=== PATIENT | female | born 1990 | race Caucasian/White ===

== ENCOUNTER → 2016-07-12 | Outpatient (CLI) | payer OTHER ==
[~2016-07-12] MED LIST: MTR600X PO; OXYC-57 PO
[2016-07-12 18:38] LABS: URINE APPEARANCE CLOUDY (CLEAR); URINE BILIRUBIN NEG (NEG); URINE COLOR YELLOW; URINE EPITHELIAL CELL AUTO >30 /lpf (0-5); URINE NITRITE NEG (NEG); URINE SPECIFIC GRAVITY 1.028 (1.000-1.030); UROBILINOGEN NEG (NEG); ZZUR CULT IF INDIC CLEAN CATCH YES
[2016-07-12 18:45] LABS: MANUAL MICROSCOPIC REQUIRED? NO; REVIEW REQ? NO
== END | disposition home or self-care (01) ==
LOC: C.LABSPEC 17:34
PROVIDERS: ATTEND Obstetrics & Gynecology
DX: N94.9 Unspecified condition associated with female genital organs and menstrual cycle (principal)

== ENCOUNTER 2016-07-30 09:53 | Day surgery (SDC) | payer OTHER ==
[2016-07-12 16:02] LABS: BASO % 0.5 %; BASO ABS # 0.04 K/uL (0-0.2); COMPLETE YES; EOS % 0.6 %; HEMATOCRIT 42.8 % (37-47); IG% 0.1 %; LYMPH % 18.5 %; LYMPH ABS # 1.52 K/uL (1.2-3.4); MEAN CELL VOLUME 84.3 fL (80-100); MEAN CORPUSCULAR HEMOGLOBIN 28.9 pg (25-34); MEAN CORPUSCULAR HGB CONC 34.3 g/dl (32-36); MEAN PLATELET VOLUME 10.7 fL (7.4-10.4); NEUT % 74.3 %; PLATELET COUNT 271 K/uL (130-400); RED BLOOD COUNT 5.08 M/uL (4.2-5.4); WHITE BLOOD COUNT 8.21 K/uL (4.8-10.8)
[2016-07-12 16:31] LABS: BLOOD UREA NITROGEN 16 mg/dl (7-18); BUN/CREATININE RATIO 16.8 (10-20); CALCIUM 9.6 mg/dl (8.5-10.1); CARBON DIOXIDE 27 mmol/L (21-32); CHLORIDE 105 mmol/L (98-107); CREATININE 0.94 mg/dl (0.60-1.20); GLUCOSE 88 mg/dl (70-99); POTASSIUM 3.7 mmol/L (3.5-5.1); SODIUM 140 mmol/L (136-145)
[2016-07-14 15:36] VITALS: BMI 24.0
[~2016-07-30] VITALS: Ht 162.6 cm; Wt 65.0 kg
[~2016-07-30 09:53] MED LIST changes: +LACTATED RINGER'S 1000ML 1,000 ML IV SCH; -MTR600X PO; -OXYC-57 PO
[2016-07-30 10:26] VITALS: BP 125/85; PULSE 71; TEMP 36.7; O2SAT 98; Ht 162.6 cm; Wt 65.0 kg
--- NOTE | 2016-07-30 11:30 | History & Physical Bridge Note ---
H&P Re-Evaluation Bridge Note: I have examined the patient, reviewed the History & Physical and in the interval since the performance of the History & Physical I have noted the following changes of clinical significance: No changes noted
[2016-07-30] MEDS ORDERED: MIDAZOLAM HCL 1 MG/ML 2ML VIAL ONE (11:39)
[2016-07-30] MEDS ORDERED: FENTANYL CITRATE INJ 50 MCG/1 ML 2 ML VIAL ONE ×2 (11:41→12:30)
[2016-07-30] MEDS ORDERED: ONDANSETRON INJ 2 MG/ML 2 ML VIAL ONE ×2 (11:42)
[2016-07-30] MEDS ORDERED: LIDOCAINE HCL 2% 2 ML VIAL (20MG/ML) ONE (11:42)
[2016-07-30] MEDS ORDERED: PROPOFOL IV EMULSION 10 MG/ML 20 ML VIAL IV ONE (11:42)
[2016-07-30] MEDS ORDERED: ROCURONIUM BROMIDE 10 MG/ML 5 ML VIAL ONE (11:42)
[2016-07-30] MEDS ORDERED: GLYCOPYRROLATE INJ 0.2 MG/ML VIAL ONE (11:42)
[2016-07-30] MEDS ORDERED: NEOSTIGMINE METHYLSULFATE 5 MG/5 ML SYR ONE (11:42)
[2016-07-30] MEDS ORDERED: DEXAMETHASONE SOD INJ 4 MG/ML VIAL ONE (11:42)
[2016-07-30] MEDS ORDERED: HYDROmorphone INJ 2 MG/ML SYR/VIAL IV PRN (12:00)
[2016-07-30] MEDS ORDERED: ATROPINE SULFATE 0.1 MG/ML 5ML SYR IV PRN (12:00)
[2016-07-30] MEDS ORDERED: FLUMAZENIL 0.1 MG/1 ML 10 ML VIAL IV PRN (12:00)
[2016-07-30] MEDS ORDERED: PHENYLEPHRINE 100MCG/ML 5ML SYR IV PRN (12:00)
[2016-07-30] MEDS ORDERED: EpHEDrine SULFATE INJ 50 MG/ML AMP IV PRN (12:00)
[2016-07-30] MEDS ORDERED: NALOXONE HCL 0.4 MG/1 ML VIAL/CARP IV PRN (12:00)
[2016-07-30] MEDS ORDERED: LABETALOL HCL IV 5 MG/ML 20ML IV PRN (12:00)
[2016-07-30] MEDS ORDERED: ONDANSETRON INJ 2 MG/ML 2 ML VIAL IV PRN ×2 (12:00→13:15)
[2016-07-30] MEDS ORDERED: MEPERIDINE HCL 25 MG/ML CARP IV PRN (12:00)
[2016-07-30] MEDS ORDERED: METHYLENE BLUE 1% 10 ML VIAL TOP ONE (13:02)
[2016-07-30] MEDS ORDERED: BUPIVACAINE 0.5 % 5 MG/1 ML MPF 30ML VIAL INJ ONE (13:02)
[2016-07-30] MEDS ORDERED: SODIUM CHLORIDE 0.9% 1000ML 1,000 ML IV SCH (13:10)
[2016-07-30] MEDS ORDERED: KETOROLAC TROMETHAMINE 30 MG/ML VIAL ONE (13:11)
--- NOTE | 2016-07-30 13:12 | [facility] Post Operative Brief Note ---
Immediate Operative Summary Operative Date Jul 30, 2016. Pre-Operative Diagnosis pelvic pain Post-Operative Diagnosis endometriosis Procedure(s) Performed Laparoscopic excision of endometriosis and chromotubation Surgeon Jamal Grease Monkey Surgeon(s) Clement Estimated Blood Loss 10ml Findings Endo in right uterosacral ligament Specimens Resected endo x 2 Drains None Anesthesia General Complication(s) None Disposition Recovery Room / PACU
--- NOTE | 2016-07-30 13:13 | Discharge Instructions ---
Discharge Instructions Admission Reason for Admission: Dysmenorrhea, Pelvic Pain Discharge Discharge Diagnosis / Problem: endometriosis Discharge Goals Goal(s): Routine recovery after surgery Activity Recommendations Activity Limitations: per Instructions/Follow-up section . Instructions / Follow-Up Instructions / Follow-Up POST OPERATIVE: BOWEL FUNCTION/MEDICATIONS: 1. Constipation pain and discomfort are the most common complaints 5-7 days after surgery. Points 2-6 address the things that can help. 2. Chewing gum can help stimulate the gut and help improve digestion and motility. 3. Milk of Magnesia 1-2 times per day until return of bowel function. 4. Colace is a stool softener that helps. Taking this 2-3 times per day until bowel function returns to normal is highly recommended. 5. Dulcolax is a laxative that may be used if several days have passed without a bowel movement. Alternatively Miralax may be used daily instead. 6. Drink plenty of fluids as this will also reduce constipation. 7. Narcotic pain medications will be prescribed by your physician. They are safe to use and we encourage you to use them. If you are not allergic, ibuprofen will also be prescribed. Many patients will be able to transition off of the narcotic medications to ibuprofen by postoperative day 3. ACTIVITY RECOMMENDATIONS: 1. Get plenty of rest and listen to your body. If you are tired, take a nap. 2. You may shower, but do not take a tub bath until you see your doctor at the 2 week post operative visit. 3. Absolutely NO intercourse and nothing in the vagina until you are examined by your doctor at the 6 week visit. At that visit it will be determined when such activities can be resumed. This can range from 6-12 weeks after your surgery depending on healing time. 4. The main physical activity in the first week should be walking. By the second week you can slowly increase activity. There are no limits on walking up and down stairs. 5. Do not lift more than 5-10 lbs for 4 weeks. Remember the "one-handed rule", i.e. if you can lift something with only one hand it's likely okay. 6. Minimize security monitor like vacuuming and exercising for 4 weeks. "Overdoing it" can lead to incisions not healing, pain and vaginal bleeding , so again, listen to your body. 7. Driving can be resumed when you feel able. Do not drive within 24 hours of taking a narcotic medication. EXPECTATIONS: 1. Vaginal spotting, bleeding and discharge are common after surgery. There may even be an odor to the discharge which is often related to sutures used in the vagina. If you experience heavy vaginal bleeding, call the office number day or night [phone]. 2. Bladder discomfort is common after surgery from the catheter. This usually resolves in 1-2 weeks. 3. By the end of the 3rd or 4th week you should be feeling much better. It may take up to 6 weeks for your energy levels to return to normal. 4. Narcotic medications have side effects such as: dizziness, headache, nausea and/or vomiting. If you suspect your pain medication is causing problems, call our office and we may be able to prescribe an alternate medication. 5. The skin incisions are often covered with a liquid bandage. This will gradually peel off over time. CALL THE OFFICE IF YOU HAVE ANY OF THE FOLLOWIN. Temperature of 101 degrees or higher. 2. Severe abdominal or pelvic pain not relieved by pain medication. 3. Persistent nausea or vomiting. 4. Increased pain with urination or difficulty urinating. 5. Bright red bleeding that soaks more than 1 pad per hour. CONTACT PHONE NUMBERS: Main Office: [phone] Surgical Nurse: [phone] extension [phone] Avoid all tobacco products. If you need help to stop smoking, call [place]'s FREE QUITLINE at . This is a free call. Current Hospital Diet Patient's current hospital diet: Discharge Diet Recommended Diet: Regular Diet Procedures Procedures Performed: Laparoscopic excision of endometriosis and chromotubation Pending Studies Studies pending at discharge: no Medical Emergencies . Who to Call and When: Medical Emergencies: If at any time you feel your situation is an emergency, please call 911 immediately. . Non-Emergent Contact Non-Emergency issues call your: Primary Care Provider . . "Provider Documentation" section prepared by Everton Berry. VTE Core Measure Inpt VTE Proph given/why not?: Treatment not indicated
[2016-07-30] MEDS ORDERED: MTR600X PO (13:14)
[2016-07-30] MEDS ORDERED: OXYC-57 PO (13:14)
[2016-07-30] MEDS ORDERED: OXYCODONE/ACETAMINOPHEN 5-325 TAB PO PRN ×2 (13:15)
[2016-07-30] MEDS ORDERED: PROMETHAZINE HCL INJ 25 MG in SODIUM CHLORIDE 0.9% 50ML 50 ML IV PRN (13:15)
[2016-07-30] MEDS ORDERED: IBUPROFEN 600 MG TAB PO PRN (13:15)
[2016-07-30] MEDS ORDERED: KETOROLAC TROMETHAMINE 30 MG/ML VIAL IV. PRN (13:15)
[2016-07-30] MEDS: FENTANYL CITRATE INJ 50 MCG/1 ML 2 ML VIAL IV PRN ×2 (13:27→13:32)
--- NOTE | 2016-07-30 13:49 | OPERATIVE REPORT ---
DATE OF OPERATION: 07/30/2016 PREOPERATIVE DIAGNOSIS: Pelvic pain. POSTOPERATIVE DIAGNOSIS: Pelvic pain and endometriosis. PROCEDURE: Da Rupal robotically-assisted laparoscopic excision of endometriosis and chromotubation of tubes. SURGEON: Dr. Berry. SURVEYING CREW STAKE RUNNER: Clement. ESTIMATED BLOOD LOSS: 10 mL. FINDINGS: Endometriosis in the right uterosacral ligament region. SPECIMENS: Resected endometriosis x2. DRAINS: None. ANESTHETIC: General. COMPLICATIONS: None. DISPOSITION: Recovery room. DESCRIPTION OF PROCEDURE: Bre was given a general anesthetic, prepped and draped in dorsolithotomy position in [facility]. Bladder drained with a Adams catheter. Cervix grasped with an Allis clamp and then a uterine acorn manipulator attached. Gloves changed and then a subumbilical incision made with scalpel. Using open Sb technique, we dissected down into the peritoneal cavity, placing then a blunt-tipped Sb trocar, balloon inflated and CO2 gas used to insufflate the abdomen. FINDINGS: Deep Trendelenburg position was obtained. Two robotic ports placed, 1 in the left, 1 in the right and we visualized using robotic assistance. In right uterosacral region, there was a small nodule, highly consistent with endometriosis, this was just lateral to the uterosacral although well medial of the ureter which course could be seen. There also was a lesion in the medial to the right uterosacral, which was suspicious for endometriosis as well. The nodule appeared dark bluish and pictures were taken for documentation. Hooking the robot up, we then applied monopolar lakeisha to arm #1 bipolar [place] arm 2. Using the uterine manipulator, I was able to identify the lesions, we were carefully able to resect the area and find a line between the ureter and the area to resect. We were nowhere near the ureter in fact very little electrosurgical energy was used to dissect this. This first specimen was placed on top of the uterus for safekeeping the second specimen which was medial to the right uterosacral was also resected by enlarged with an nonelectrosurgery using sharply. Careful inspection of the pelvic sidewalls, the left uterosacral, ureters, anterior bladder region, uterus itself, appendix and the entire pelvis were all negative for endometriosis. At the end of the procedure, methylene blue diluted with saline was placed through the cervix and was able to be demonstrated the bilateral patency of both fallopian tubes. At the end of the procedure, removed the instruments from the vagina, Adams catheter was removed. Robot had been undocked and instruments had been removed. Ports removed, gas allowed to escape. Incisions injected with 0.5% Marcaine. Fascia closed with 0 Vicryl in the umbilical incision and then 4-0 subcuticular Monocryl. It should be noted that 2 specimens had been removed earlier during the procedure through one of the robotic arms. I attest to the content of the Intraoperative Record and any orders documented therein. Any exceptio ns are noted below.
--- NOTE | 2016-07-30 13:53 | Anesthesia Progress Nt - [facility] ---
Anesthesia Post Op Note Date & Time Jul 30, 2016 at 13:53 Vital Signs Pain Intensity: 2 Vital Signs Past 12 Hours Date Time Temp Pulse Resp B/P Pulse Ox O2 Delivery O2 Flow Rate FiO2 07/30/16 13:40 Room Air 07/30/16 13:20 36 74 16 145/92 98 Mask 10 07/30/16 10:26 36.7 71 18 125/85 98 Room Air Notes Mental Status: alert / awake / arousable, participated in evaluation Pt Amnestic to Procedure: Yes Nausea / Vomiting: adequately controlled Pain: adequately controlled Airway Patency, RR, SpO2: stable & adequate BP & HR: stable & adequate Hydration State: stable & adequate Anesthetic Complications: no major complications apparent
[2016-07-30 14:05] VITALS: BP 128/72; PULSE 74; TEMP 36.6; O2SAT 94
[2016-07-30 14:35] VITALS: BP 121/75; PULSE 65; O2SAT 95
[2016-07-30 15:05] VITALS: BP 116/73; PULSE 65; TEMP 36.1; O2SAT 94
[2016-07-30 15:35] VITALS: BP 115/72; PULSE 70; TEMP 36.2; O2SAT 95
[2016-07-30 16:05] VITALS: BP_SYST 119; PULSE 75; TEMP 36.3; O2SAT 96
== END 2016-07-30 16:15 | disposition home or self-care (01) ==
LOC: C.ACU 09:53
PROVIDERS: ATTEND Obstetrics & Gynecology
DX: N80.0 Endometriosis of uterus (principal); N94.9 Unspecified condition associated with female genital organs and menstrual cycle; F32.9 Major depressive disorder, single episode, unspecified; N94.6 Dysmenorrhea, unspecified; Z87.891 Personal history of nicotine dependence; Z82.49 Family history of ischemic heart disease and other diseases of the circulatory system; Z83.3 Family history of diabetes mellitus

== ENCOUNTER → 2017-02-03 | Outpatient (CLI) | payer OTHER ==
[~2017-02-03] MED LIST changes: -LACTATED RINGER'S 1000ML 1,000 ML IV SCH; +MTR600X PO; +OXYC-57 PO
[2017-02-06 14:27] LABS: CHLAMYDIA TRACH RNA*** DETECTED (NOT DETECTED); GC (NEIS GONORRHOEAE)RNA** NOT DETECTED (NOT DETECTED)
== END | disposition home or self-care (01) ==
LOC: C.LAB 12:01
PROVIDERS: ATTEND Physician Assistant
DX: Z20.2 Contact with and (suspected) exposure to infections with a predominantly sexual mode of transmission (principal)

== ENCOUNTER → 2017-05-31 | Outpatient (CLI) | payer OTHER | END | disposition home or self-care (01) | LOC: C.PAPS 10:03 | PROVIDERS: ATTEND Obstetrics & Gynecology | DX: Z34.81 Encounter for supervision of other normal pregnancy, first trimester (principal) ==

== ENCOUNTER → 2017-05-31 | Outpatient (CLI) | payer OTHER ==
[2017-05-31 15:35] LABS: BASO % 0.3 %; BASO ABS # 0.03 K/uL (0-0.2); COMPLETE YES; EOS % 0.7 %; HEMATOCRIT 38.9 % (37-47); IG% 0.3 %; LYMPH % 19.5 %; LYMPH ABS # 1.84 K/uL (1.2-3.4); MEAN CELL VOLUME 86.8 fL (80-100); MEAN CORPUSCULAR HEMOGLOBIN 29.2 pg (25-34); MEAN CORPUSCULAR HGB CONC 33.7 g/dl (32-36); MEAN PLATELET VOLUME 10.6 fL (7.4-10.4); MONO % 6.2 %; PLATELET COUNT 213 K/uL (130-400); RED BLOOD COUNT 4.48 M/uL (4.2-5.4); WHITE BLOOD COUNT 9.43 K/uL (4.8-10.8)
[2017-05-31 16:46] LABS: URINE APPEARANCE CLEAR (CLEAR); URINE BILIRUBIN NEG (NEG); URINE COLOR YELLOW; URINE EPITHELIAL CELL AUTO >30 /lpf (0-5); URINE NITRITE NEG (NEG); URINE SPECIFIC GRAVITY 1.017 (1.000-1.030); UROBILINOGEN NEG (NEG)
[2017-05-31 16:47] LABS: MANUAL MICROSCOPIC REQUIRED? NO; REVIEW REQ? NO
[2017-06-03 01:52] LABS: CHLAMYDIA TRACH RNA*** NOT DETECTED (NOT DETECTED); GC (NEIS GONORRHOEAE)RNA** NOT DETECTED (NOT DETECTED)
== END | disposition home or self-care (01) ==
LOC: C.LAB1850 14:49
PROVIDERS: ATTEND Obstetrics & Gynecology
DX: Z34.81 Encounter for supervision of other normal pregnancy, first trimester (principal); Z3A.00 Weeks of gestation of pregnancy not specified

== ENCOUNTER → 2017-07-21 | Outpatient (CLI) | payer OTHER | END | disposition home or self-care (01) | LOC: C.LAB1850 09:11 | PROVIDERS: ATTEND Obstetrics & Gynecology | DX: Z34.82 Encounter for supervision of other normal pregnancy, second trimester (principal) ==

== ENCOUNTER → 2017-10-13 | Outpatient (CLI) | payer OTHER ==
[2017-10-13 12:30] LABS: HEMATOCRIT 35.5 % (37-47); HEMOGLOBIN 11.7 g/dL (12.0-16.0)
== END | disposition home or self-care (01) ==
LOC: C.LAB1850 09:33
PROVIDERS: ATTEND Obstetrics & Gynecology
DX: Z34.83 Encounter for supervision of other normal pregnancy, third trimester (principal)

== ENCOUNTER → 2018-02-23 | Outpatient (CLI) | payer OTHER | END | disposition home or self-care (01) | LOC: C.PAPS 13:54 | PROVIDERS: ATTEND Obstetrics & Gynecology | DX: Z39.2 Encounter for routine postpartum follow-up (principal) ==

== ENCOUNTER 2019-03-18 04:47 | Inpatient (IN) ==
[2019-03-18] MEDS ORDERED: OXYTOCIN 30 UNITS/500 ML BAG IV PRN (06:29)
[2019-03-18] MEDS ORDERED: LACTATED RINGER'S 1,000 ML IV PRN (06:29)
[2019-03-18 06:57] LABS: Hematocrit (blood only) 35.2 % (37-47); Hemoglobin 11.1 g/dL (12.0-16.0); Mean Corpuscular Volume 80.7 fL (80-100); Mean Platelet Volume 12.5 fL (7.4-10.4); Platelet Count 187 K/uL (130-400); RDW Coefficient of Variation 15.2 % (11.5-14.5); RDW Standard Deviation 44.3 fL (36.4-46.3); Red Blood Count 4.36 M/uL (4.2-5.4); White Blood Count 11.81 K/uL (4.8-10.8)
[2019-03-18 07:01] LABS: Mean Corpuscular Hgb Conc 31.5 g/dL (32-36)
[2019-03-18] MEDS ORDERED: IBUPROFEN 600 MG TAB PO ONE (07:44)
[2019-03-18] MEDS ORDERED: BENZOCAINE 20% AER SPR 82.5 GM CAN EXT ONE (07:44)
--- NOTE | 2019-03-18 07:44 | Delivery Summary ---
Vaginal Delivery Summary Date of Service March 18, 2019 Vaginal Delivery Summary DIAGNOSES: 1. Mckay intrauterine at 39w5d gestation. 2. Spontaneous onset of labor. 3. Group B Streptococcus Neg. PROCEDURE: Spontaneous vaginal delivery, 1st degree laceration for which patient declined repair. SURGEON: Ana Lilia Spangler MD. RESEARCH PROGRAM MANAGER: None. ESTIMATED BLOOD LOSS: 300 mL. COMPLICATIONS: None. PLACENTA: Spontaneous and intact with a 3-vessel cord. DISPOSITION: Stable to labor and delivery. DESCRIPTION: The patient pushed well and brought the head to in OA position. The infant's head was allowed to deliver with contraction force and no further active pushing, with the perineum protected during this time. The shoulders delivered easily with a maternal pushing effort. There was a loose nuchal cord. The left shoulder was anterior. The shoulders and body delivered without any difficulty, and the infant was placed on the maternal abdomen. It was vigorous and moving all extremities, and making respiratory efforts. The cord was doubly clamped by the MD and then cut by the FOB. The placenta delivered spontaneously and was noted to be intact and with a 3VC. The cervix, vagina and perineum were examined and were found to have a first degree perineal laceration. The patient was offered local anesthetic and suture, but declined, preferring to allow the area to heal naturally. The fundus was firm and lochia minimal immediately after delivery.
[2019-03-18] MEDS ORDERED: BISACODYL 10 MG SUPP PR PRN (08:01)
[2019-03-18] MEDS ORDERED: OXYCODONE/ACETAMINOPHEN 5mg/325mg TAB PO PRN (08:01)
[2019-03-18] MEDS ORDERED: DIPHTHERIA/TETANUS/PERTUSSIS 0.5 ML SYR/VIAL IM ONE (08:01)
[2019-03-18] MEDS ORDERED: ACETAMINOPHEN 325 MG TAB PO PRN (08:01)
[2019-03-18] MEDS ORDERED: SUPERCREAM 0.870% 15 GM JAR EXT PRN (08:01)
[2019-03-18] MEDS ORDERED: BENZOCAINE 20% AER SPR 82.5 GM CAN EXT PRN (08:01)
[2019-03-18] MEDS ORDERED: HYDROCORTISONE ACETATE 25 MG SUPP PR PRN (08:01)
[2019-03-18] MEDS: SERTRALINE HCL 50 MG TABLET PO SCH (09:48)
[2019-03-18] MEDS: DOCUSATE SODIUM 100 MG CAP PO SCH ×2 (09:48→20:36)
[2019-03-18] MEDS: PRENATAL VITAMIN 1 TAB PO SCH (09:49)
[2019-03-18] MEDS: IBUPROFEN 600 MG TAB PO PRN (18:35)
[2019-03-19] MEDS: IBUPROFEN 600 MG TAB PO PRN ×2 (01:29→08:21)
--- NOTE | 2019-03-19 04:32 | Obstetrical Progress Note ---
Date of Service <Temo Roy MD - Last Filed: 03/19/19 06:27> March 19, 2019 Assessment & Plan <Temo Roy MD - Last Filed: 03/19/19 06:27> (1) : 03/18 PPD#1 feels well, ambulating well, voiding well will continue routine care After discharge will have 6 week follow-up Subjective <Temo Roy MD - Last Filed: 03/19/19 06:27> Ms Villa is a 29 y/o female ; PPD #1 following spontaneous vaginal delivery at 39+ weeks; doing well this morning; no abdominal cramping/pain; voiding well, passing gas but no bowel movements; tolerating meals overnight; and able to ambulate some within room; some persistent spotting with intermittent improvement this morning. Review of Systems Constitutional: denies fever; chills; sweats; headache Respiratory: denies shortness of breath, difficulty breathing Cardiac: denies chest pain; palpitations; chest pressure Breast: denies breast pain : denies dysuria Physical Exam <Temo Roy MD - Last Filed: 03/19/19 06:27> General: alert; oriented; no acute distress Cardiac: RRR; no m/g/r Respiratory: CTAB a/p; no wheezes/rales/rhonchi; no increased work of breathing; symmetrical chest rise; no respiratory distress Abdomen: soft; NT/ND; bowel sounds positive Uterus: uterine fundus firm; palpable 2cm below umbilicus Lower extrem: no lower extremity edema or swelling; no deep calf pain; Brittany's sign negative b/l Results & Data <Temo Roy MD - Last Filed: 03/19/19 06:27> Vital Signs (Past 12 Hours) Vital Signs Temp Pulse Resp BP Pulse Ox 03/18/19 20:20 36.7 C 68 16 114/73 98 Laboratory Results 03/18/19 Range/Units 06:44 WBC 11.81 H (4.8-10.8) K/uL RBC 4.36 (4.2-5.4) M/uL Hgb 11.1 L (12.0-16.0) g/dL Hct 35.2 L (37-47) % MCV 80.7 (80-100) fL MCH 25.5 (25-34) pg MCHC 31.5 L (32-36) g/dL RDW Std Deviation 44.3 (36.4-46.3) fL RDW Coeff of Carlito 15.2 H (11.5-14.5) % Plt Count 187 (130-400) K/uL MPV 12.5 H (7.4-10.4) fL Medications Administered Current Inpatient Medications Acetaminophen (Tylenol) 650 mg PO Q6H PRN PRN Reason: Pain/GARCIA/Fever Stop: 04/17/19 08:00 Benzocaine (Dermoplast Pain Relieving Ricardo) 1 appln EXT PRN PRN PRN Reason: Perineal Discomfort Stop: 04/17/19 08:00 Bisacodyl (Dulcolax) 5 mg PO 2000 [facility] Stop: 03/19/19 20:01 Bisacodyl (Dulcolax) 10 mg MS DAILY PRN PRN Reason: No BM on 2nd post- day Stop: 04/17/19 08:00 Cocaine HCl (Supercream 0.870%) 1 gm EXT BID PRN PRN Reason: Hemorrhoidal Inflammation Stop: 04/01/19 08:00 Docusate Sodium (Colace) 100 mg PO DAILY@08,21 [facility] Stop: 04/17/19 08:00 Last Admin: 03/18/19 20:36 Dose: 100 mg Documented by: Hydrocortisone (Anusol Hc) 25 mg MS BID PRN PRN Reason: Hemorrhoidal Inflammation Stop: 04/17/19 08:00 Oxytocin (Pitocin) 30 units in 500 mls @ 333.333 mls/hr IV .Q1H30M PRN; Protocol PRN Reason: Bleeding Control Stop: 04/17/19 06:28 Last Titration: 03/18/19 09:40 Dose: Infused Documented by: Lactated Ringer's (Lr) 1,000 mls @ 125 mls/hr IV .Q8H PRN; Protocol PRN Reason: L&D Protocol Stop: 03/20/19 06:28 Last Infusion: 03/18/19 09:40 Dose: 0 mls/hr Documented by: Ibuprofen (Motrin) 600 mg PO Q4H PRN PRN Reason: Pain/GARCIA/Cramping/Fever Stop: 04/17/19 08:00 Last Admin: 03/19/19 01:29 Dose: 600 mg Documented by: Oxycodone/Acetaminophen (Percocet 5mg/325mg) 1 tab PO Q4H PRN PRN Reason: Pain not relieved by... Stop: 04/01/19 08:00 Prenat Multivit/Hand Suture Winder/Iron/Folic Ac ( Vitamin) 1 tab PO DAILY@08 [facility] Stop: 04/17/19 08:00 Last Admin: 03/18/19 09:49 Dose: 1 tab Documented by: Sertraline HCl (Zoloft) 25 mg PO DAILY [facility] Stop: 04/17/19 08:59 Last Admin: 03/18/19 09:48 Dose: 25 mg Documented by: <Ana Lilia Spangler MD - Last Filed: 03/19/19 06:51> Co-Signing Physician Notes I have reviewed the resident's note and examined the patient myself, and agree with the note above. Resident Activity Tracking <Temo Roy MD - Last Filed: 03/19/19 06:27> Resident Involvement: Resident Care Provided Care Provided: OB Delivery
[2019-03-19 06:42] LABS: Hematocrit (blood only) 30.2 % (37-47); Hemoglobin 9.6 g/dL (12.0-16.0); Mean Corpuscular Hgb Conc 31.8 g/dL (32-36); Mean Corpuscular Volume 82.5 fL (80-100); Mean Platelet Volume 12.7 fL (7.4-10.4); Platelet Count 158 K/uL (130-400); RDW Coefficient of Variation 15.4 % (11.5-14.5); RDW Standard Deviation 46.5 fL (36.4-46.3); Red Blood Count 3.66 M/uL (4.2-5.4); White Blood Count 10.61 K/uL (4.8-10.8)
[2019-03-19] MEDS: SERTRALINE HCL 50 MG TABLET PO SCH (08:21)
[2019-03-19] MEDS: PRENATAL VITAMIN 1 TAB PO SCH (08:21)
[2019-03-19] MEDS: DOCUSATE SODIUM 100 MG CAP PO SCH (08:21)
[2019-03-19] MEDS ORDERED: BISACODYL 5 MG TABEC PO SCH (20:00)
== END 2019-03-19 19:43 | disposition home or self-care (01) | DRG 807 ==
LOC: OPB 04:47 → 4S1 04:50 → 4S2 10:26

== ENCOUNTER 2024-05-18 07:42 | Inpatient (IN) ==
[2024-05-18] MEDS ORDERED: OXYTOCIN 30 UNITS/NSS 30 UNITS/500 ML BAG IV PRN ×2 (08:47→20:07)
[2024-05-18] MEDS ORDERED: ACETAMINOPHEN 325 MG TAB PO PRN (08:47)
--- NOTE | 2024-05-18 09:04 | History & Physical Report ---
Date of Service May 18, 2024 Assessment & Plan (1) 37 weeks gestation of : (2) Polyhydramnios affecting : (3) Gestational diabetes: (4) Encounter for induction of labor: (5) Encounter for supervision of normal in multigravida: Plan Admit for IOL Pt does not want siegel placed, ok w pit Unsure about pain mgmt, maybe epidural VSS, POC glucose wnl, FHT cat 1 Admission and Anticipated Discharge Date Admission Date: May 18, 2024 History of Present Illness Primary Care Provider: Olegario Hernández DO Patient is a 34 y/o female currently at 37w 5d WGA (w LACY 06/03/24 as determined by LMP) who is here for IOL. Her previous pregnancies and deliveries have been uncomplicated. She has never needed labor induction before. This was complicated by polyhydramnios, GDM. She has h/o migraines, but stopped topamax during . Reports mild GARCIA, relieved w Tylenol. She has had regular appointments with OB. She was here yesterday w concern for LOF; exam showed no evidence of ROM. She denies fevers, fatigue, SOB, chest pain, leg swelling, or n/v exceeding baseline -related symptoms. Having mild, irregular contractions + movement + bloody show External monitoring used; FHT category 1, normal variability Blood type: O+ Antibody screen: Neg GBS: Neg Rubella: Immune VDRL/RPR: Neg Gonorrhea: Not detected Chalmydia: Not detected HIV: Non-reactive HbSAg: Non-reactive Allergies Allergy/AdvReac Type Severity Reaction Status Date / Time latex Allergy Intermediate ITCHY RASH Verified 05/17/24 13:00 Home Medications Medication Instructions Recorded Confirmed Type sertraline 100 mg tablet (Zoloft) 200 mg PO HS 12/10/21 05/18/24 History digital therapeutic,ADITHYA device #1 ea 01/19/24 05/17/24 Rx acetone (urine) test (Ketone Urine #50 ea 01/23/24 05/17/24 Rx Test strips) blood sugar diagnostic (SparkBaseTouch #150 ea 01/23/24 05/17/24 Rx Verio test strips) blood-glucose meter (OneTouch #1 ea 01/23/24 05/17/24 Rx Verio Reflect Meter) lancets 33 gauge (OneTouch Delica #150 ea 01/23/24 05/17/24 Rx Plus Lancet) Past Med/Surg History Problem List (Updated 05/18/24 @ 09:03 by Lorie Seo MD) Encounter for induction of labor Vaginal discharge 37 weeks gestation of Polyhydramnios affecting Migraine without aura Gestational diabetes HPV (human papilloma virus) infection ASCUS (atypical squamous cells of undetermined significance) on gynecologic Papanicolaou smear complicating , antepartum Encounter for anatomic survey Encounter for supervision of normal in multigravida (Acute) Depression (Acute) Endometriosis (Acute) Resolved Medical History (Updated 05/18/24 @ 09:03 by Lorie Seo MD) Complete miscarriage Varicella Chlamydia hx > 4-5 yrs ago Depression Migraine History of COVID-19 2 yrs ago > not hospitalized Dysmenorrhea Surgical History (Updated 05/18/24 @ 08:58 by Yenni De Leon RN) S/P dilatation and curettage S/P tonsillectomy and adenoidectomy History of oral surgery wisdom teeth History of laparoscopy Laparoscopic excision endometriotic tissue Cul-de-sac S/P knee surgery right, 2009 Family History (Updated 05/18/24 @ 08:59 by Yenni De Leon, RYLAN) Father Diabetes Mother Hypertension Uncle Colorectal cancer Grandmother (Maternal) Hypertension Denies family history of Ovarian cancer Breast cancer Uterine cancer Social History Smoking Status: Former smoker Tobacco Type: Cigarettes Second Hand Exposure: No; Do You Dip or Chew Tobacco: No; Tobacco Cessation Education Requested by Patient: No Hx Alcohol Use: No Hx Substance Use: No Preferred Language: Togolese Communication Ability: Effective Visual Impairment: No Limitations Circle Cutting Saw Operator Required: No Beliefs That Will Affect Care: None marital status: Single marital status details: Hitesh Jo (23) Current Living Situation: Family Current Living Situation Comment: Three daughters (Nupur 11, Nova 6, Jennyfer 5) current occupational status: employed current occupation: [employer] Other Information That Helps Us Care for You: No Feels Safe at Home: Yes Safety Concerns: Feels Safe At This Time Assistive Devices: None Physical Exam Physical Exam: General: Alert and oriented. No acute distress CV: Regular rate and rhythm. No murmurs. Respiratory: CTA bilaterally. No rhonchi, wheezes, or crackles. No increased work of breathing. Abdomen: Gravid: Soft, nontender upon palpation Lower extremities: NO LE edema. No deep calf pain. Brittany's negative bilaterally. Results & Data Results & Data Vital Signs (Past 12 Hours) Vital Signs Temp Pulse Resp BP 05/18/24 08:23 77 05/18/24 08:23 126/83 05/18/24 08:04 36.8 C 16 05/18/24 07:57 74 144/91 H 05/18/24 07:55 83 140/85 Laboratory Results 05/18/24 09:06 POC Glucose 98 Supervising Physician Co-Signing Physician Notes Resident Physician Supervision Note: I interviewed and examined the patient. Discussed with Dr. Seo and agree with findings and plan as documented in the note. Any exceptions or clarifications are listed here: 34 yo at 37 5/7 wga presents for IOL for polyhydramnios. +FM; denies regular ctx, LOF, VB. Notes some bloody mucous discharge. PNI: Poly, A1GDM. SVE 2-3/75/-2, Fetus cat 1, irreg ctx. Will start pit, gbs neg, epidural prn. EFW 7-8 Documented By: Argenis Cannon MD Resident Activity Tracking Resident Involvement: Resident Care Provided Care Provided: Adult Hospital Medicine and OB Delivery
[2024-05-18 09:32] LABS: Hematocrit (blood only) 30.8 % (37.0-47.0); Hemoglobin 9.5 g/dl (12.0-16.0); Mean Corpuscular Hemoglobin 24.6 pg (25.0-34.0); Mean Corpuscular Hgb Conc 30.8 g/dL (32.0-36.0); Mean Corpuscular Volume 79.8 fL (80.0-100.0); Mean Platelet Volume 11.4 fL (9.4-12.4); Platelet Count 197 K/uL (130-400); RDW Coefficient of Variation 17.1 % (11.5-14.5); Red Blood Count 3.86 M/uL (4.20-5.40); White Blood Count 8.12 K/ul (4.8-10.8)
[2024-05-18] MEDS: LACTATED RINGER'S 1,000 ML IV SCH (10:00)
[2024-05-18] MEDS: OXYTOCIN 30 UNITS/NSS 30 UNITS/500 ML BAG IV PRN (10:00)
[2024-05-18] MEDS ORDERED: ePHEDrine sulfate 50 MG/ML AMP ONE (11:24)
[2024-05-18] MEDS ORDERED: fentaNYL citrate PF 100 MCG/2 ML VIAL ONE (11:24)
[2024-05-18] MEDS ORDERED: BUPIVACAINE 0.25% PF 30 ML VIAL ONE (11:25)
[2024-05-18] MEDS ORDERED: SODIUM CHLORIDE 0.9% PF INJ 10 ML VIAL ONE (11:25)
[2024-05-18] MEDS ORDERED: LIDOCAINE 2%/EPINEPHRINE 1:200,000 20 ML PF ONE (11:25)
[2024-05-18] MEDS ORDERED: ROPIVACAINE 0.5% PF 5 MG/ML 20 ML VIAL EPI PRN (11:42)
[2024-05-18] MEDS ORDERED: diphenhydrAMINE 50 MG/ML VIAL IV PRN (11:42)
[2024-05-18] MEDS ORDERED: fentANYL 2 MCG/ML BUPIVacaine 0.125%-NSS 100ML BAG EPI PRN (11:42)
[2024-05-18] MEDS ORDERED: SODIUM CHLORIDE 0.9% PF INJ 10 ML VIAL EPI STA (11:42)
[2024-05-18] MEDS ORDERED: LIDOCAINE 2% MPF LOCAL 5 ML VIAL EPI PRN (11:42)
[2024-05-18] MEDS ORDERED: ePHEDrine sulfate 50 MG/ML AMP IV PRN (11:42)
[2024-05-18] MEDS ORDERED: SODIUM CHLORIDE 0.9% PF INJ 10 ML VIAL EPI PRN (11:42)
[2024-05-18] MEDS ORDERED: BUPIVACAINE 0.25% PF 30 ML VIAL EPI PRN (11:42)
[2024-05-18] MEDS ORDERED: fentaNYL citrate PF 100 MCG/2 ML VIAL EPI PRN (11:42)
[2024-05-18] MEDS ORDERED: NALOXONE HCL 1 MG in SODIUM CHLORIDE 0.9% 1,000 ML IV PRN (11:42)
[2024-05-18] MEDS ORDERED: NALOXONE HCL 0.4 MG/1 ML VIAL/CARP IV PRN (11:42)
[2024-05-18] MEDS ORDERED: NALBUPHINE HCL INJ 10 MG/ML AMP IV PRN (11:42)
[2024-05-18] MEDS ORDERED: fentaNYL citrate PF 100 MCG/2 ML VIAL EPI STA (11:42)
--- NOTE | 2024-05-18 11:42 | Anesthesiology Consultation ---
Date of Service May 18, 2024 Assessment & Plan (1) Encounter for pre-operative examination: Chart Review Chart Review: Patient NOT seen in Pre Admission Testing and Acceptable Risk for Labor Epidural Consults Requested none History Height/Weight Height: 5 ft 4 in Weight: 102.512 kg Allergies Allergy/AdvReac Type Severity Reaction Status Date / Time latex Allergy Intermediate ITCHY RASH Verified 05/17/24 13:00 Medications Home Medications Medication Instructions Recorded Confirmed Last Taken sertraline 100 mg tablet (Zoloft) 200 mg PO HS 12/10/21 05/18/24 1 Day Ago ~05/17/24 200 mg digital therapeutic,ADITHYA device #1 ea 01/19/24 05/17/24 Unknown acetone (urine) test (Ketone Urine #50 ea 01/23/24 05/17/24 Unknown Test strips) blood sugar diagnostic (OneTouch #150 ea 01/23/24 05/17/24 Unknown Verio test strips) blood-glucose meter (OneTouch #1 ea 01/23/24 05/17/24 Unknown Verio Reflect Meter) lancets 33 gauge (OneTouch Delica #150 ea 01/23/24 05/17/24 Unknown Plus Lancet) Active Medications Generic Name Dose Route Start Last Admin Trade Name Freq PRN Reason Stop Dose Admin Oxytocin 30 units in 500 mls @ 6 mls/hr 05/18/24 09:56 05/18/24 11:00 Pitocin 30 Units/Nss IV 05/20/24 09:55 0.36 units/hr .Q24H PRN 6 mls/hr Labor Induction/Augmentation Titration Protocol 0.36 UNITS/HR Past Medical History Medical History Complete miscarriage Varicella Chlamydia hx > 4-5 yrs ago Depression Migraine History of COVID-19 2 yrs ago > not hospitalized Dysmenorrhea Past Family History Family History Father Diabetes Mother Hypertension Uncle Colorectal cancer Grandmother (Maternal) Hypertension Denies family history of Ovarian cancer Breast cancer Uterine cancer Past Surgical History Surgical History S/P dilatation and curettage S/P tonsillectomy and adenoidectomy History of oral surgery wisdom teeth History of laparoscopy Laparoscopic excision endometriotic tissue Cul-de-sac S/P knee surgery right, 2010 Social History Smoking Status: Former smoker tobacco type: cigarettes Do You Dip or Chew Tobacco: No Hx Alcohol Use: No Hx Substance Use: No substance use type: does not use Physical Exam Vital Signs Last Vital Signs Temp 98.2 F 05/18/24 08:23 Pulse 83 05/18/24 11:29 Resp 16 05/18/24 08:23 BP 142/87 H 05/18/24 11:29 Testing Laboratory Results 05/18/24 09:14 Blood Type O Positive 05/18/24 09:14 Antibody Screen NEGATIVE 05/18/24 09:14 05/18/24 09:06 POC Glucose 98
[2024-05-18] MEDS: fentANYL 2 MCG/ML BUPIVacaine 0.125%-NSS 100ML BAG ONE (12:04)
[2024-05-18] MEDS: LIDOCAINE 2%/EPINEPHRINE 1:200,000 20 ML PF EPI STA (12:14)
[2024-05-18] MEDS: BUPIVACAINE 0.25% PF 30 ML VIAL EPI STA (12:14)
--- NOTE | 2024-05-18 16:41 | Delivery Summary ---
Vaginal Delivery Summary Date of Service May 18, 2024 Vaginal Delivery Summary DIAGNOSES: 1. Mckay intrauterine at 37w5d gestation. 2. Induction of Labor for Polyhydramnios, A1GDM. 3. Group B Streptococcus Neg. PROCEDURE: Spontaneous vaginal delivery and repair of second degree laceration. SURGEON: Ana Lilia Spangler MD. TAIL BOARD MAN: None. QUANTITATIVE BLOOD LOSS: 95 mL. COMPLICATIONS: None. PLACENTA: Spontaneous and intact with a 3-vessel cord. DISPOSITION: Stable to labor and delivery. DESCRIPTION: The head was initial asynclitic and LOT, but with repositioning and pushing on her side, rotation was noted and the head presented RICARDO at . The patient pushed well. The 's head was allowed to deliver with contraction force and no further active pushing, with the perineum protected during this time. There was one tight loop of nuchal cord, which the baby was delivered through as it was nonreducible. The shoulders and body delivered without any difficulty, and the infant was placed on the maternal abdomen. It was vigorous and moving all extremities, and making respiratory efforts. The cord was doubly clamped by the MD and then cut by the FOB. The placenta delivered spontaneously and was noted to be intact and with a 3VC. The cervix, vagina and perineum were examined and were found to have a second degree laceration which was repaired in the usual manner with vicryl suture. The fundus was firm and lochia minimal immediately after delivery. [facility] [place] Vaginal Delivery Charge Vaginal Delivery Codes: 97385 global code for the antepartum, delivery, and post-
--- NOTE | 2024-05-18 17:11 | Anesthesia Procedure Note ---
Date of Service May 18, 2024 Anesthesia Post Epidural Note Vital Signs Vital Signs: Temp Pulse Resp BP Pulse Ox 97.9 F 85 18 126/72 100 05/18/24 15:18 05/18/24 17:07 05/18/24 15:18 05/18/24 17:00 05/18/24 17:07 Notes Mental Status: alert / awake / arousable and participated in evaluation Nausea / Vomiting: adequately controlled Pain: adequately controlled Airway Patency, RR, SpO2: stable & adequate BP & HR: stable & adequate Hydration State: stable & adequate Neuraxial Anesthesia: was administered and sensory block is resolving Anesthetic Complications: no major complications apparent and Pt Satisfied with anesthetic care Epidural: Removed without complications and With tip intact
[2024-05-18] MEDS ORDERED: bisacodyL 10 MG SUPP PR PRN (20:07)
[2024-05-18] MEDS ORDERED: HYDROCORTISONE ACETATE 25 MG SUPP PR PRN (20:07)
[2024-05-18] MEDS: BENZOCAINE 20% SPRY 85 APPLN/85 GM CAN EXT PRN (21:24)
[2024-05-18] MEDS: DOCUSATE SODIUM 100 MG CAP PO SCH (21:25)
[2024-05-18] MEDS: SERTRALINE HCL 100 MG TABLET PO SCH (21:25)
[2024-05-18] MEDS: IBUPROFEN 600 MG TAB PO PRN (21:27)
--- NOTE | 2024-05-19 05:48 | Obstetrical Progress Note ---
Date of Service <Lorie Seo MD - Last Filed: 05/19/24 07:01> May 19, 2024 Assessment & Plan <Lorie Seo MD - Last Filed: 05/19/24 07:01> (1) Polyhydramnios affecting : (2) Gestational diabetes: (3) Encounter for supervision of normal in multigravida: (4) care and examination: Plan PPD#1 after at 37 5/7 weeks. Rh+, gbs neg, ri Stable, continue routine care, work on Would like to stay until tomorrow <Ana Lilia Spangler MD - Last Filed: 05/19/24 07:48> (1) Polyhydramnios affecting : (2) Gestational diabetes: (3) Encounter for supervision of normal in multigravida: (4) care and examination: Subjective <Lorie Seo MD - Last Filed: 05/19/24 07:01> 34 y/o female who is PPD#1 following 37 5/7 weeks. Minimal abd pain/cramping, well managed on analgesics Is voiding, eating, ambulating normally, having appropriate lochia Having some trouble feeding baby. 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 No acute distress. Cardiac: Regular rate and rhythm, no murmurs, rubs, or gallops. Respiratory: Clear to auscultation bilaterally. No increased work of breathing. Symmetrical chest rise. No respiratory distress. Abdomen: Soft, nontender, nondistended. Bowel sounds present. Uterus: Uterine fundus firm, nontender. Lower extremities: No lower extremity edema or swelling. No deep calf pain. Results & Data <Lorie Seo MD - Last Filed: 05/19/24 07:01> Vital Signs (Past 12 Hours) Vital Signs Temp Pulse Pulse Resp BP BP Pulse Ox 05/19/24 02:50 36.7 C 84 18 136/77 97 05/18/24 23:04 36.8 C 79 18 120/76 95 05/18/24 21:15 05/18/24 19:03 36.6 C 99 H 18 110/74 96 05/18/24 18:29 93 H 05/18/24 18:29 133/81 05/18/24 18:27 98 05/18/24 18:27 100 H 05/18/24 18:22 98 05/18/24 18:22 100 H 05/18/24 18:17 98 05/18/24 18:17 97 H 05/18/24 18:12 98 05/18/24 18:12 87 05/18/24 18:12 153/78 H 05/18/24 18:07 98 05/18/24 18:07 110 H 05/18/24 18:02 99 05/18/24 18:02 85 05/18/24 17:57 97 05/18/24 17:57 78 05/18/24 17:52 96 05/18/24 17:52 97 H 05/18/24 17:47 98 05/18/24 17:47 82 O2 Del Method 05/19/24 02:50 Room Air 05/18/24 23:04 Room Air 05/18/24 21:15 Room Air 05/18/24 19:03 05/18/24 18:29 05/18/24 18:29 05/18/24 18:27 05/18/24 18:27 05/18/24 18:22 05/18/24 18:22 05/18/24 18:17 05/18/24 18:17 05/18/24 18:12 05/18/24 18:12 05/18/24 18:12 05/18/24 18:07 05/18/24 18:07 05/18/24 18:02 05/18/24 18:02 05/18/24 17:57 05/18/24 17:57 05/18/24 17:52 05/18/24 17:52 05/18/24 17:47 05/18/24 17:47 Laboratory Results 05/19/24 06:15 Supervising Physician <Ana Lilia Spangler MD - Last Filed: 05/19/24 07:48> Co-Signing Physician Notes Resident Physician Supervision Note: I interviewed and examined the patient. Discussed with Dr. Seo and agree with findings and plan as documented in the note. Any exceptions or clarifications are listed here: No major issues, planning d/c tomorrow, assist with BF today. Documented By: Ana Lilia Spangler MD, FACOG Resident Activity Tracking <Lorie Seo MD - Last Filed: 05/19/24 07:01> Resident Involvement: Resident Care Provided Care Provided: Adult Hospital Medicine and OB Delivery
[2024-05-19 06:49] LABS: Hemoglobin 8.2 g/dl (12.0-16.0); Mean Corpuscular Hemoglobin 24.7 pg (25.0-34.0); Mean Corpuscular Hgb Conc 30.4 g/dL (32.0-36.0); Mean Corpuscular Volume 81.3 fL (80.0-100.0); Mean Platelet Volume 12.1 fL (9.4-12.4); Platelet Count 166 K/uL (130-400); RDW Coefficient of Variation 17.1 % (11.5-14.5); RDW Standard Deviation 50.3 fL (36.4-46.3); Red Blood Count 3.32 M/uL (4.20-5.40); White Blood Count 10.51 K/ul (4.8-10.8)
[2024-05-19] MEDS: PRENATAL VITAMIN 1 TAB PO SCH (09:30)
[2024-05-19] MEDS: ACETAMINOPHEN 325 MG TAB PO PRN (23:05)
[2024-05-20 06:49] LABS: Hematocrit (blood only) 29.3 % (37.0-47.0); Hemoglobin 8.8 g/dl (12.0-16.0)
[2024-05-20 07:20] VITALS: RESP 16; TEMP 98.1; O2SAT 98
[2024-05-20] MEDS: bisacodyL 5 MG TABEC PO SCH (07:28)
--- NOTE | 2024-05-20 08:00 | Obstetrical Progress Note ---
Date of Service May 20, 2024 Assessment & Plan (1) care and examination: 34 yo PP2 from , doing well -Meeting all pp milestones. Most recent bp elevated but pt very crampy, given meds and will recheck. Will get labs as well -O+/rubella immune/ -f/u 6 weeks for appt, likely still ok for dc pending labs and repeat BPs, office bp check Subjective Ambulation: ambulating normally Voiding: no voiding problems Passing Gas:: Yes Diet Tolerance:: regular diet Lochia:: Small Feeding Type:: bottle feeding Pain well managed with medication Review of Systems Denies fevers, chills, n/v, GARCIA, CP, SOB Physical Exam Constitutional WD/WN, vitals as above no acute distress Respiratory normal respiratory effort, lungs clear to auscultation Cardiovascular RRR, no murmur, no edema Gastrointestinal (Abdomen) Percussion/Palpation: abdomen soft; abdomen nontender fundus firm at umbilicus and NT Musculoskeletal BLE symmetric, nonerythematous, nontender Results & Data Vital Signs (Past 12 Hours) Vital Signs Temp Pulse Pulse Resp BP BP Pulse Ox 05/20/24 07:18 70 152/91 H 05/20/24 07:14 98.1 F 69 16 149/87 H 98 05/19/24 22:57 98.2 F 84 18 127/81 97 O2 Del Method 05/20/24 07:18 05/20/24 07:14 Room Air 05/19/24 22:57 Room Air
[2024-05-20 08:33] LABS: Hematocrit (blood only) 30.5 % (37.0-47.0); Mean Corpuscular Hgb Conc 29.5 g/dL (32.0-36.0); Mean Corpuscular Volume 81.3 fL (80.0-100.0); Mean Platelet Volume 11.4 fL (9.4-12.4); Platelet Count 184 K/uL (130-400); RDW Coefficient of Variation 17.2 % (11.5-14.5); RDW Standard Deviation 49.8 fL (36.4-46.3); Red Blood Count 3.75 M/uL (4.20-5.40)
[2024-05-20 08:50] LABS: Albumin Globulin Ratio 1.1 (0.9-2); BUN Creatinine Ratio 10.2 (10-20); Bilirubin,Total 0.2 mg/dl (0.2-1.0); Calcium 8.6 mg/dl (8.6-10.3); Creatinine Clr Calc Pharmacy 158.1 ml/min; Globulin 2.7 gm/dl (2.5-4.0); Total Protein 5.7 gm/dl (6.0-8.3)
--- NOTE | 2024-05-20 09:33 | Communication Note ---
Date of Service: May 20, 2024 Labs returned and wnl, BP still just barely mild range after pain medication improved pain. Still denies s/s PIH. Seems like mary Rosas so I think ok for dc and plan for bp check on . Discussed PIH s/s to call for, pt verbalized understanding
[2024-05-20 11:07] VITALS: BP 137/87; PULSE 77
== END 2024-05-20 13:20 | disposition home or self-care (01) | DRG 806 ==
LOC: 4S1 07:42 → 4E2 18:45